=== PATIENT | female | born 1980 | race Hispanic/Latino ===

== ENCOUNTER 2016-12-16 21:16 | Outpatient (CLI) | payer MEDICAID ==
[2016-12-16 22:01] LABS: Bilirubin,Urine NEG (Negative); Blood,Urine NEG (Negative); Ketones,Urine NEG (Negative); Leukocyte Esterase,Urine MOD (Negative); Mucus,Urine FEW /HPF; Nitrite,Urine NEG (Negative); Protein,Urine <15 mg/dL mg/dL (Negative); RBC,Urine < 1.0 /HPF (0.0-6.0); Urobilinogen,Urine < 2.0 mg/dL (<2.0)
[2016-12-16 22:39] VITALS: BP 140/71
--- NOTE | 2016-12-17 08:07 | Ultrasound Report ---
OB LIMITED INDICATION: BOOKER. Possible rupture of membranes. COMPARISON: None similar. TECHNIQUE: Transabdominal grayscale ultrasound with Doppler interrogation. Gestation: [place] Position: Transverse - Head maternal right Amniotic Fluid: WNL (7-24 cm) BOOKER = 10.4 cm Placenta: Fundal Placental Grade: III Heart Rate: 127 BPM
== END 2016-12-16 22:40 | disposition home or self-care (01) ==
LOC: TRG 21:16
PROVIDERS: ATTEND Obstetrics & Gynecology
DX: O32.2XX0 Maternal care for transverse and oblique lie, not applicable or unspecified (principal); Z3A.31 31 weeks gestation of pregnancy
CPT/HCPCS: 76815; 81001

== ENCOUNTER 2017-01-09 10:32 | Inpatient (IN) | payer MEDICAID ==
[2017-01-09] MEDS ORDERED: MILK OF MAGNESIA PO PRN (10:49)
[2017-01-09] MEDS ORDERED: SENOKOT S PO PRN (10:49)
[2017-01-09] MEDS ORDERED: COLACE PO PRN (10:49)
[2017-01-09] MEDS ORDERED: APRESOLINE IV PRN (10:49)
[2017-01-09] MEDS ORDERED: ZOFRAN IV PRN (10:49)
[2017-01-09] MEDS ORDERED: TYLENOL PO PRN (10:49)
--- NOTE | 2017-01-09 10:59 | History and Physical Report ---
History of Present Illness Date of examination: 01/09/17 Chief complaint: Elevated BP's in the office 192/118 History of present illness: Pt is a 36yo WF S/P Repeat C Section 01/03/17 @ 34 weeks due to PPROM and Breech, presented to the office for incision check where her BP was elevated 150 /110 and 192/118 on repeat. She has chronic hypertension, but currently not on medication, and complains of a headache. Past History Past Medical History: hypertension Past Surgical History: section Social history: no significant social history, single - Obstetrical History : 4 Medications and Allergies Allergies Allergy/AdvReac Type Severity Reaction Status Date / Time aspirin Allergy Itching Verified 11/11/14 13:16 tramadol HCl [From Ultram] AdvReac Vomiting Verified 11/11/14 13:16 Home Medications Medication Instructions Recorded Confirmed Last Taken Type Ondansetron [Zofran Odt] 4 mg PO Q4H PRN #7 tab.rapdis 09/06/16 01/09/17 Unknown Rx Ferrous Sulfate [Feosol 325 MG tab] 325 mg PO BID #60 tablet 01/03/17 01/09/17 Unknown Rx HYDROcodone/APAP 5-325 [[place] 1 each PO Q6HR PRN #30 tablet 01/03/17 01/09/17 Unknown Rx 5/325] Ibuprofen [Motrin] 800 mg PO Q8HR PRN #30 tablet 01/03/17 01/09/17 Unknown Rx Vit W-Ca,Fe,FA(<1 mg) 1 each PO DAILY #30 tablet 01/03/17 01/09/17 Unknown Rx [ Vitamins] hydrALAZINE [Apresoline TAB] 25 mg PO Q8HR #90 tab 01/10/17 Unknown Rx Active Meds: Active Medications Acetaminophen (Tylenol) 650 mg PO Q4H PRN PRN Reason: Pain MILD(1-3)/Fever >100.5/NUNEZ Docusate Sodium (Colace) 100 mg PO Q12H PRN PRN Reason: Constipation Hydralazine HCl (Apresoline) 10 mg IV Q30MIN PRN PRN Reason: Blood Pressure Lactated Ringer's (Lactated Ringers) 1,000 mls @ 125 mls/hr IV DIRECT JORY Magnesium Hydroxide (Milk Of Magnesia) 30 ml PO QHS PRN PRN Reason: Laxative Effect Multivitamins/Iron/Calcium ( Vitamin) 1 each PO QDAY JORY Ondansetron HCl (Zofran) 4 mg IV Q6H PRN PRN Reason: Nausea And Vomiting Senna/Docusate Sodium (Senokot S) 2 tab PO Q12H PRN PRN Reason: Laxative Effect Review of Systems All systems: negative Results Result Diagrams: 01/09/17 14:20 01/09/17 14:20 All other labs normal. Assessment and Plan - Patient Problems (1) Accelerated hypertension Onset Date: 01/09/17 Current Visit: Yes Status: Acute Plan to address problem: A: Uncontrolled hypertension P: Admit for Observation and BP management Obtain Hospitalist consultation (2) Preeclampsia in period Onset Date: 01/09/17 Current Visit: Yes Status: Acute
[2017-01-09] MEDS ORDERED: LACTATED RINGERS 1,000 ML IV SCH (13:18)
--- NOTE | 2017-01-09 13:43 | Admit Criteria Form ---
Admission Criteria Documentation: HYPERTENSIVE DISORDERS OF Clinical Indications for Admission to Inpatient Care (Place 'X' for any and all applicable criteria): Admission is indicated for ANY ONE of the following (1)(2)(3)(4)(5): [ ]I. Eclampsia[A][B] [X ]II. Preeclampsia with severe features (ie, severe preeclampsia) indicated by ANY ONE of the following[B][C]: [X ]a) SBP greater than or equal to 160 mm Hg or DBP greater than or equal to 110 mm Hg on 2 occasions at least 4 hours apart while the patient is at bed rest (unless antihypertensive therapy is initiated before this time) [ ]b) Platelet count less than 100,000/mm3 (100 x109/L) [ ]c) Impaired liver function as indicated by ANY ONE of the following: [ ]i. Elevation of liver enzymes (eg, SGOT, SGPT) to twice normal concentration [ ]ii. Severe persistent right upper quadrant or epigastric pain unresponsive to medication and not accounted for by alternative diagnosis [ ]d) Progressive renal insufficiency indicated by ANY ONE of the following: [ ]i. Serum creatinine concentration greater than 1.1 mg/dL (97 micromoles/L) [ ]ii. Doubling (from baseline) of serum creatinine concentration in the absence of other renal disease [ ]e) Pulmonary edema [ X]f) Cerebral or visual symptoms (eg, headache, Altered mental status, changes in vision) [ ]III. Delivery planned due to nonsevere preeclampsia as indicated by ALL of the following: [ ]a) Nonsevere preeclampsia present as indicated by ALL of the following: [ ]i. Woman at 20 or more weeks' gestation [ ]ii. New-onset SBP greater than or equal to 140 mm Hg but less than 160 mm Hg or DBP greater than or equal to 90 mm Hg but less than 110 mm Hg on 2 occasions at least 4 hours apart [ ]iii. Proteinuria present as indicated by ANY ONE of the following: [ ]A. Urinary protein excretion greater than or equal to 300 mg per 24-hour collection (or this amount extrapolated from a shorter timed collection) [ ]B. Protein/creatinine ratio greater than or equal to 0.3 (measured in mg/dL) [ ]b) Delivery indicated due to ANY ONE of the following: [ ]i. Gestational age of 37 0/7 weeks or more [ ]ii. Gestational age of 34 0/7 weeks to 36 6/7 weeks and ANY ONE of the following: [ ]A. Progressive labor or rupture of membranes [ ]B. Abnormal biophysical profile [ ]C. Suspected abruptio placentae [ ]D. Ultrasound estimate of weight less than 5th percentile [ ]E. Other indication for delivery [ ]IV. Delivery planned due to gestational hypertension[D] because of ANY ONE of the following: [ ]a) Delivery indicated because gestational age of 37 0/7 weeks or more has been reached [ ]b) Gestational age of 34 0/7 weeks to 36 6/7 weeks for which delivery is indicated because of ANY ONE of the following: [ ]i. Progressive labor or rupture of membranes [ ]ii. Abnormal biophysical profile [ ]iii. Suspected abruptio placentae [ ]iv. Ultrasound estimate of weight less than 5th percentile [ ]v. Other indication for delivery [ ]V. Hypertension of any category[E] during with acute end organ damage as indicated by ANY ONE of the following: [ ]a) Hypertensive encephalopathy (eg, Altered mental status that is severe or persistent )(11) [ ]b) Cerebral infarction [ ]c) Intracranial hemorrhage [ ]d) Myocardial ischemia or infarction [ ]e) Pulmonary edema [ ]f) Aortic dissection [ ]g) Seizure [ ]h) Papilledema [ ]i) Microangiopathic hemolytic anemia [ ]j) Visual loss [ ]k) Acute renal failure [ ]) Hypertension during with evidence of compromise as indicated by ANY ONE of the following: [ ]a) Abnormal heart tones [ ]b) Abnormal stress test [ ]c) Abnormal biophysical profile [ ]VII) patient requires inpatient control of blood pressure indicated by (see Hypertensive Disorders of : Observation Care [facility] guideline as appropriate) ALL of the following: [ ]a) SBP is greater than or equal to 160 mm Hg or DBP is greater than or equal to 105 mm Hg [ ]b) Blood pressure cannot be reduced below these levels with outpatient or observation care treatment (eg, oral medications not effective) Extended stay beyond goal length of stay may be needed for : [ ]a) Eclampsia [ ]b) Ongoing compromise [ ]c) Complications of hypertensive disorders of [ ]d) Active comorbidities (eg, heart failure, poorly controlled diabetes, renal insufficiency) [ ]e) Persistent hypertension [ ]f) Delivery planned The original [facility] content created by [facility] has been revised. The portions of the content which have been revised are identified through the use of italic text or in bold, and [facility] has neither reviewed nor approved the modified material. All other unmodified content is copyright [facility]. Please see references footnoted in the original [facility] edition 2016. Admission Criteria Met: Yes
--- NOTE | 2017-01-09 13:52 | Consultation ---
History of Present Illness - Reason for Consult Consult date: 01/09/17 Requesting physician: HEAVENLY CHARLES - History of Present Illness 36 YO Female with HTN, Obesity admitted to OB service. Consult placed for Accelerated hypertension. Pt found to have systolic of 150-192. Pt denies fever , chills, CP, Palpitations, NVD, Headache, Syncope, BRBPR. Pt noncompliant with prehospital antihypertensive therapy. Past History Past Medical History: hypertension Past Surgical History: Social history: no significant social history, single Family history: hypertension Medications and Allergies Allergies Allergy/AdvReac Type Severity Reaction Status Date / Time aspirin Allergy Itching Verified 11/11/14 13:16 tramadol HCl [From Ultram] AdvReac Vomiting Verified 11/11/14 13:16 Home Medications Medication Instructions Recorded Confirmed Last Taken Type Ondansetron [Zofran Odt] 4 mg PO Q4H PRN #7 tab.rapdis 09/06/16 01/09/17 Unknown Rx Ferrous Sulfate [Feosol 325 MG tab] 325 mg PO BID #60 tablet 01/03/17 01/09/17 Unknown Rx HYDROcodone/APAP 5-325 [[place] 1 each PO Q6HR PRN #30 tablet 01/03/17 01/09/17 Unknown Rx 5/325] Ibuprofen [Motrin] 800 mg PO Q8HR PRN #30 tablet 01/03/17 01/09/17 Unknown Rx Vit W-Ca,Fe,FA(<1 mg) 1 each PO DAILY #30 tablet 01/03/17 01/09/17 Unknown Rx [ Vitamins] Active Meds: Active Medications Acetaminophen (Tylenol) 650 mg PO Q4H PRN PRN Reason: Pain MILD(1-3)/Fever >100.5/NUNEZ Hydralazine HCl (Apresoline) 10 mg IV Q30MIN PRN PRN Reason: Blood Pressure Lactated Ringer's (Lactated Ringers) 1,000 mls @ 125 mls/hr IV DIRECT JORY Magnesium Hydroxide (Milk Of Magnesia) 30 ml PO QHS PRN PRN Reason: Laxative Effect Multivitamins/Iron/Calcium ( Vitamin) 1 each PO QDAY JORY Ondansetron HCl (Zofran) 4 mg IV Q6H PRN PRN Reason: Nausea And Vomiting Senna/Docusate Sodium (Senokot S) 2 tab PO Q12H PRN PRN Reason: Laxative Effect Review of Systems Constitutional: other (hypertension) Exam - Constitutional Vitals: Temp Pulse Resp BP Pulse Ox 98.2 F 81 18 141/80 01/09/17 11:35 01/09/17 11:35 01/09/17 11:35 01/09/17 11:35 General appearance: Present: obese - EENT Eyes: Present: PERRL ENT: hearing intact, clear oral mucosa - Neck Neck: Present: supple, normal ROM - Respiratory Respiratory effort: normal Respiratory: bilateral: CTA - Cardiovascular Heart Sounds: Present: S1 & S2. Absent: rub, click - Extremities Extremities: pulses symmetrical, No edema Peripheral Pulses: within normal limits - Abdominal General gastrointestinal: Present: soft, non-tender, non-distended, normal bowel sounds Female genitourinary: Present: normal - Integumentary Integumentary: Present: clear, warm, dry - Musculoskeletal Musculoskeletal: gait normal, strength equal bilaterally - Psychiatric Psychiatric: appropriate mood/affect, intact judgment & insight - Neurologic Neurologic: CNII-XII intact, moves all extremities Results - Labs CBC & Chem 7: 01/09/17 14:20 01/09/17 14:20 Assessment and Plan - Patient Problems (1) Accelerated hypertension Current Visit: Yes Status: Acute Plan to address problem: Monitor bp q shift, scheduled hydralazine tid, (2) Obesity Current Visit: Yes Status: Acute Qualifiers: Obesity type: O Obesity severity: O Plan to address problem: Pt counseled regarding increased physical activity, balanced diet. (3) DVT prophylaxis Current Visit: Yes Status: Acute
[2017-01-09] MEDS: APRESOLINE PO SCH ×2 (14:32→22:59)
[2017-01-09 14:46] LABS: Bacteria,Urine 1+ /HPF (Negative); Bilirubin,Urine NEG (Negative); Blood,Urine SM (Negative); Ketones,Urine NEG (Negative); Leukocyte Esterase,Urine TR (Negative); Mucus,Urine FEW /HPF; Nitrite,Urine NEG (Negative); Protein,Urine <15 mg/dL mg/dL (Negative); Urobilinogen,Urine < 2.0 mg/dL (<2.0)
[2017-01-09 14:51] LABS: Hematocrit 34.6 % (30.3-42.9); Hemoglobin 11.5 gm/dl (10.1-14.3); Mean Corpuscular HGB Conc 33 % (30-34); Mean Corpuscular Hemoglobin 29 pg (28-32); Mean Corpuscular Volume 86 fl (79-97); Platelet Count 351 K/mm3 (140-440); Red Blood Count 4.03 M/mm3 (3.65-5.03); Red Cell Distribution Width 14.3 % (13.2-15.2); White Blood Count 19.2 K/mm3 (4.5-11.0)
[2017-01-09 15:10] LABS: Alanine Aminotransferase 17 units/L (7-56); Albumin 3.2 g/dL (3.9-5); Albumin/Globulin Ratio 0.9 %; Alkaline Phosphatase 172 units/L (35-129); Anion Gap 18 mmol/L; BUN/Creatinine Ratio 18.33; Bilirubin,Total 0.2 mg/dL (0.1-1.2); Blood Urea Nitrogen 11 mg/dL (7-17); Calcium 8.3 mg/dL (8.4-10.2); Carbon Dioxide 24 mmol/L (22-30); Chloride 99.8 mmol/L (98-107); Glucose 100 mg/dL (65-100); Potassium 3.8 mmol/L (3.6-5.0); Sodium 138 mmol/L (137-145); Total Protein 6.8 g/dL (6.3-8.2)
[2017-01-09 16:19] LABS: Basophils % (Manual) 0 % (0.0-1.8); Blastocytes % (Manual) 0 %; Eosinophils % (Manual) 0 % (0.0-4.3)
[2017-01-09 16:20] LABS: Diff Status Complete; RBC Morphology Normal
[2017-01-09] MEDS ORDERED: ceFAZolin 2 GM in NACL 0.9% 100 ML IV ONE (16:30)
[2017-01-10] MEDS: KEFLEX PO SCH ×2 (00:05→11:12)
[2017-01-10] MEDS ORDERED: ANCEF/NS 1 GM/50 ML 1 GM/50 ML BAG IV SCH (00:30)
[2017-01-10] MEDS: APRESOLINE PO SCH ×2 (06:02→14:29)
[2017-01-10] MEDS ORDERED: PRENATAL VITAMIN PO SCH (10:00)
--- NOTE | 2017-01-10 10:10 | Progress Note ---
Hospitalist Physical - Constitutional Vitals: Temp Pulse Resp BP Pulse Ox 98.2 F 85 18 128/85 01/10/17 08:30 01/10/17 08:30 01/10/17 08:30 01/10/17 08:30 General appearance: Present: obese Results - Labs CBC & Chem 7: 01/09/17 14:20 01/09/17 14:20 Labs: Laboratory Last Values WBC 19.2 K/mm3 (4.5-11.0) H 01/09/17 14:20 RBC 4.03 M/mm3 (3.65-5.03) 01/09/17 14:20 Hgb 11.5 gm/dl (10.1-14.3) 01/09/17 14:20 Hct 34.6 % (30.3-42.9) 01/09/17 14:20 MCV 86 fl (79-97) 01/09/17 14:20 MCH 29 pg (28-32) 01/09/17 14:20 MCHC 33 % (30-34) 01/09/17 14:20 RDW 14.3 % (13.2-15.2) 01/09/17 14:20 Plt Count 351 K/mm3 (140-440) 01/09/17 14:20 Add Manual Diff Complete 01/09/17 14:20 Total Counted 100 01/09/17 14:20 Seg Neuts % (Manual) 76.0 % (40.0-70.0) H 01/09/17 14:20 Band Neutrophils % 0 % 01/09/17 14:20 Lymphocytes % (Manual) 16.0 % (13.4-35.0) 01/09/17 14:20 Reactive Lymphs % (Man) 0 % 01/09/17 14:20 Monocytes % (Manual) 5.0 % (0.0-7.3) 01/09/17 14:20 Eosinophils % (Manual) 0 % (0.0-4.3) 01/09/17 14:20 Basophils % (Manual) 0 % (0.0-1.8) 01/09/17 14:20 Metamyelocytes % 0 % 01/09/17 14:20 Myelocytes % 3.0 % 01/09/17 14:20 Promyelocytes % 0 % 01/09/17 14:20 Blast Cells % 0 % 01/09/17 14:20 Nucleated RBC % Not Reportable 01/09/17 14:20 Seg Neutrophils # Man 14.6 K/mm3 (1.8-7.7) H 01/09/17 14:20 Band Neutrophils # 0.0 K/mm3 01/09/17 14:20 Lymphocytes # (Manual) 3.1 K/mm3 (1.2-5.4) 01/09/17 14:20 Abs React Lymphs (Man) 0.0 K/mm3 01/09/17 14:20 Monocytes # (Manual) 1.0 K/mm3 (0.0-0.8) H 01/09/17 14:20 Eosinophils # (Manual) 0.0 K/mm3 (0.0-0.4) 01/09/17 14:20 Basophils # (Manual) 0.0 K/mm3 (0.0-0.1) 01/09/17 14:20 Metamyelocytes # 0.0 K/mm3 01/09/17 14:20 Myelocytes # 0.6 K/mm3 01/09/17 14:20 Promyelocytes # 0.0 K/mm3 01/09/17 14:20 Blast Cells # 0.0 K/mm3 01/09/17 14:20 WBC Morphology Not Reportable 01/09/17 14:20 Hypersegmented Neuts Not Reportable 01/09/17 14:20 Hyposegmented Neuts Not Reportable 01/09/17 14:20 Hypogranular Neuts Not Reportable 01/09/17 14:20 Smudge Cells Not Reportable 01/09/17 14:20 Toxic Granulation Not Reportable 01/09/17 14:20 Toxic Vacuolation Not Reportable 01/09/17 14:20 Dohle Bodies Not Reportable 01/09/17 14:20 Pelger-Huet Anomaly Not Reportable 01/09/17 14:20 Delio Rods Not Reportable 01/09/17 14:20 Platelet Estimate Appears normal 01/09/17 14:20 Clumped Platelets Not Reportable 01/09/17 14:20 Plt Clumps, EDTA Not Reportable 01/09/17 14:20 Large Platelets Not Reportable 01/09/17 14:20 Giant Platelets Not Reportable 01/09/17 14:20 Platelet Satelliting Not Reportable 01/09/17 14:20 Plt Morphology Comment Not Reportable 01/09/17 14:20 RBC Morphology Normal 01/09/17 14:20 Dimorphic RBCs Not Reportable 01/09/17 14:20 Polychromasia Not Reportable 01/09/17 14:20 Hypochromasia Not Reportable 01/09/17 14:20 Poikilocytosis Not Reportable 01/09/17 14:20 Anisocytosis Not Reportable 01/09/17 14:20 Microcytosis Not Reportable 01/09/17 14:20 Macrocytosis Not Reportable 01/09/17 14:20 Spherocytes Not Reportable 01/09/17 14:20 Pappenheimer Bodies Not Reportable 01/09/17 14:20 Sickle Cells Not Reportable 01/09/17 14:20 Target Cells Not Reportable 01/09/17 14:20 Tear Drop Cells Not Reportable 01/09/17 14:20 Ovalocytes Not Reportable 01/09/17 14:20 Helmet Cells Not Reportable 01/09/17 14:20 [place] Bodies Not Reportable 01/09/17 14:20 [place] Rings Not Reportable 01/09/17 14:20 [place] Cells Not Reportable 01/09/17 14:20 Bite Cells Not Reportable 01/09/17 14:20 Crenated Cell Not Reportable 01/09/17 14:20 Elliptocytes Not Reportable 01/09/17 14:20 Acanthocytes (Spur) Not Reportable 01/09/17 14:20 Rouleaux Not Reportable 01/09/17 14:20 Hemoglobin C Crystals Not Reportable 01/09/17 14:20 Schistocytes Not Reportable 01/09/17 14:20 Malaria parasites Not Reportable 01/09/17 14:20 Javier Bodies Not Reportable 01/09/17 14:20 Hem Pathologist Commnt No 01/09/17 14:20 Sodium 138 mmol/L (137-145) 01/09/17 14:20 Potassium 3.8 mmol/L (3.6-5.0) 01/09/17 14:20 Chloride 99.8 mmol/L (98-107) 01/09/17 14:20 Carbon Dioxide 24 mmol/L (22-30) 01/09/17 14:20 Anion Gap 18 mmol/L 01/09/17 14:20 BUN 11 mg/dL (7-17) 01/09/17 14:20 Creatinine 0.6 mg/dL (0.7-1.2) L 01/09/17 14:20 Estimated GFR > 60 ml/min 01/09/17 14:20 BUN/Creatinine Ratio 18.33 % 01/09/17 14:20 Glucose 100 mg/dL (65-100) 01/09/17 14:20 Calcium 8.3 mg/dL (8.4-10.2) L 01/09/17 14:20 Total Bilirubin 0.2 mg/dL (0.1-1.2) 01/09/17 14:20 AST 14 units/L (5-40) 01/09/17 14:20 ALT 17 units/L (7-56) 01/09/17 14:20 Alkaline Phosphatase 172 units/L (35-129) H 01/09/17 14:20 Lactate Dehydrogenase 250 units/L (91-180) H 01/09/17 14:20 Total Protein 6.8 g/dL (6.3-8.2) 01/09/17 14:20 Albumin 3.2 g/dL (3.9-5) L 01/09/17 14:20 Albumin/Globulin Ratio 0.9 % 01/09/17 14:20 Urine Color Yellow (Yellow) 01/09/17 14:23 Urine Turbidity Clear (Clear) 01/09/17 14:23 Urine pH 7.0 (5.0-7.0) 01/09/17 14:23 Ur Specific [place] 1.015 (1.003-1.030) 01/09/17 14:23 Urine Protein <15 mg/dl mg/dL (Negative) 01/09/17 14:23 Urine Glucose (UA) Neg mg/dL (Negative) 01/09/17 14:23 Urine Ketones Neg mg/dL (Negative) 01/09/17 14:23 Urine Blood Sm (Negative) 01/09/17 14:23 Urine Nitrite Neg (Negative) 01/09/17 14:23 Urine Bilirubin Neg (Negative) 01/09/17 14:23 Urine Urobilinogen < 2.0 mg/dL (<2.0) 01/09/17 14:23 Ur Leukocyte Esterase Tr (Negative) 01/09/17 14:23 Urine WBC (Auto) 3.0 /HPF (0.0-6.0) 01/09/17 14:23 Urine RBC (Auto) 4.0 /HPF (0.0-6.0) 01/09/17 14:23 U Epithel Cells (Auto) 1.0 /HPF (0-13.0) 01/09/17 14:23 Urine Bacteria (Auto) 1+ /HPF (Negative) 01/09/17 14:23 Urine Mucus Few /HPF 01/09/17 14:23
--- NOTE | 2017-01-10 11:00 | Progress Note ---
Assessment and Plan - Patient Problems (1) Accelerated hypertension Onset Date: 01/09/17 Current Visit: Yes Status: Resolved Plan to address problem: A: Uncontrolled hypertension - now controlled on Apresoline 25mg Q8H P: Appreciate Hospitalist consultation Will discharge to home today with follow up in office in 3 days. (2) Preeclampsia in period Onset Date: 01/09/17 Current Visit: Yes Status: Resolved Subjective - Subjective Date of service: 01/10/17 Principal diagnosis: Uncontrolled hypertension; Suspected preeclampsia Interval history: Pt is feeling much better, headaches resolved and BP's improved on Apresoline 25mg Q8H. BP's 124-136/79-85; now 128/85 Patient reports: appetite normal, voiding normally, pain well controlled, ambulating normally Objective - Vital Signs Latest vital signs: Vital Signs Temp Pulse Pulse Resp BP BP 01/10/17 08:30 98.2 F 85 18 128/85 01/10/17 06:30 16 01/10/17 06:02 76 130/82 01/10/17 04:15 98.1 F 83 20 124/82 01/10/17 00:58 98.6 F 91 H 18 136/79 01/09/17 22:59 82 130/77 01/09/17 20:00 99 F 84 22 140/77 01/09/17 16:45 98.5 F 95 H 18 153/1 01/09/17 14:32 73 141/80 01/09/17 11:35 98.2 F 81 18 141/80 Intake and Output 01/09/17 01/10/17 01/10/17 22:59 06:59 14:59 Intake Total 840 240 Balance 840 240 Intake: Oral 600 Intake, Free Water 240 240 Other: Total, Intake Amount 600 # Voids Void 1 1 - Exam Cardiovascular: Present: Regular rate Lungs: Present: Clear to auscultation Abdomen: Present: normal appearance, soft Uterus: Present: normal Incision: Present: normal, dry, intact - Labs Labs: Abnormal lab results 01/09/17 01/09/17 01/09/17 Range/Units 14:20 14:20 14:20 WBC 19.2 H (4.5-11.0) K/mm3 Seg Neuts % (Manual) 76.0 H (40.0-70.0) % Seg Neutrophils # Man 14.6 H (1.8-7.7) K/mm3 Monocytes # (Manual) 1.0 H (0.0-0.8) K/mm3 Creatinine 0.6 L (0.7-1.2) mg/dL Calcium 8.3 L (8.4-10.2) mg/dL Alkaline Phosphatase 172 H (35-129) units/L Lactate Dehydrogenase 250 H (91-180) units/L Albumin 3.2 L (3.9-5) g/dL Laboratory Results - last 24 hr 01/09/17 01/09/17 01/09/17 14:20 14:20 14:20 WBC 19.2 H RBC 4.03 Hgb 11.5 Hct 34.6 MCV 86 MCH 29 MCHC 33 RDW 14.3 Plt Count 351 Add Manual Diff Complete Total Counted 100 Seg Neuts % (Manual) 76.0 H Band Neutrophils % 0 Lymphocytes % (Manual) 16.0 Reactive Lymphs % (Man) 0 Monocytes % (Manual) 5.0 Eosinophils % (Manual) 0 Basophils % (Manual) 0 Metamyelocytes % 0 Myelocytes % 3.0 Promyelocytes % 0 Blast Cells % 0 Nucleated RBC % Not Reportable Seg Neutrophils # Man 14.6 H Band Neutrophils # 0.0 Lymphocytes # (Manual) 3.1 Abs React Lymphs (Man) 0.0 Monocytes # (Manual) 1.0 H Eosinophils # (Manual) 0.0 Basophils # (Manual) 0.0 Metamyelocytes # 0.0 Myelocytes # 0.6 Promyelocytes # 0.0 Blast Cells # 0.0 WBC Morphology Not Reportable Hypersegmented Neuts Not Reportable Hyposegmented Neuts Not Reportable Hypogranular Neuts Not Reportable Smudge Cells Not Reportable Toxic Granulation Not Reportable Toxic Vacuolation Not Reportable Dohle Bodies Not Reportable Pelger-Huet Anomaly Not Reportable Delio Rods Not Reportable Platelet Estimate Appears normal Clumped Platelets Not Reportable Plt Clumps, EDTA Not Reportable Large Platelets Not Reportable Giant Platelets Not Reportable Platelet Satelliting Not Reportable Plt Morphology Comment Not Reportable RBC Morphology Normal Dimorphic RBCs Not Reportable Polychromasia Not Reportable Hypochromasia Not Reportable Poikilocytosis Not Reportable Anisocytosis Not Reportable Microcytosis Not Reportable Macrocytosis Not Reportable Spherocytes Not Reportable Pappenheimer Bodies Not Reportable Sickle Cells Not Reportable Target Cells Not Reportable Tear Drop Cells Not Reportable Ovalocytes Not Reportable Helmet Cells Not Reportable [place] Bodies Not Reportable [place] Rings Not Reportable [place] Cells Not Reportable Bite Cells Not Reportable Crenated Cell Not Reportable Elliptocytes Not Reportable Acanthocytes (Spur) Not Reportable Rouleaux Not Reportable Hemoglobin C Crystals Not Reportable Schistocytes Not Reportable Malaria parasites Not Reportable Javier Bodies Not Reportable Hem Pathologist Commnt No Sodium 138 Potassium 3.8 Chloride 99.8 Carbon Dioxide 24 Anion Gap 18 BUN 11 Creatinine 0.6 L Estimated GFR > 60 BUN/Creatinine Ratio 18.33 Glucose 100 Calcium 8.3 L Total Bilirubin 0.2 AST 14 ALT 17 Alkaline Phosphatase 172 H Lactate Dehydrogenase 250 H Total Protein 6.8 Albumin 3.2 L Albumin/Globulin Ratio 0.9 Urine Color Urine Turbidity Urine pH Ur Specific [place] Urine Protein Urine Glucose (UA) Urine Ketones Urine Blood Urine Nitrite Urine Bilirubin Urine Urobilinogen Ur Leukocyte Esterase Urine WBC (Auto) Urine RBC (Auto) U Epithel Cells (Auto) Urine Bacteria (Auto) Urine Mucus 01/09/17 14:23 WBC RBC Hgb Hct MCV MCH MCHC RDW Plt Count Add Manual Diff Total Counted Seg Neuts % (Manual) Band Neutrophils % Lymphocytes % (Manual) Reactive Lymphs % (Man) Monocytes % (Manual) Eosinophils % (Manual) Basophils % (Manual) Metamyelocytes % Myelocytes % Promyelocytes % Blast Cells % Nucleated RBC % Seg Neutrophils # Man Band Neutrophils # Lymphocytes # (Manual) Abs React Lymphs (Man) Monocytes # (Manual) Eosinophils # (Manual) Basophils # (Manual) Metamyelocytes # Myelocytes # Promyelocytes # Blast Cells # WBC Morphology Hypersegmented Neuts Hyposegmented Neuts Hypogranular Neuts Smudge Cells Toxic Granulation Toxic Vacuolation Dohle Bodies Pelger-Huet Anomaly Delio Rods Platelet Estimate Clumped Platelets Plt Clumps, EDTA Large Platelets Giant Platelets Platelet Satelliting Plt Morphology Comment RBC Morphology Dimorphic RBCs Polychromasia Hypochromasia Poikilocytosis Anisocytosis Microcytosis Macrocytosis Spherocytes Pappenheimer Bodies Sickle Cells Target Cells Tear Drop Cells Ovalocytes Helmet Cells Bates-[place] Bodies [place] Rings [place] Cells Bite Cells Crenated Cell Elliptocytes Acanthocytes (Spur) Rouleaux Hemoglobin C Crystals Schistocytes Malaria parasites Javier Bodies Hem Pathologist Commnt Sodium Potassium Chloride Carbon Dioxide Anion Gap BUN Creatinine Estimated GFR BUN/Creatinine Ratio Glucose Calcium Total Bilirubin AST ALT Alkaline Phosphatase Lactate Dehydrogenase Total Protein Albumin Albumin/Globulin Ratio Urine Color Yellow Urine Turbidity Clear Urine pH 7.0 Ur Specific [place] 1.015 Urine Protein <15 mg/dl Urine Glucose (UA) Neg Urine Ketones Neg Urine Blood Sm Urine Nitrite Neg Urine Bilirubin Neg Urine Urobilinogen < 2.0 Ur Leukocyte Esterase Tr Urine WBC (Auto) 3.0 Urine RBC (Auto) 4.0 U Epithel Cells (Auto) 1.0 Urine Bacteria (Auto) 1+ Urine Mucus Few
--- NOTE | 2017-01-10 11:10 | Discharge Summary ---
Providers - Providers Date of Admission: 01/09/17 11:13 Attending physician: HEAVENLY TAPIA MD 01/09/17 11:55 Consult to Physician [CONS] Urgent Consulting Provider: GIRMA REYNOLDS Reason For Exam: Uncontrolled hypertension Place consult to:: Hospitalist Notified:: Hospitalist Phone number called:: [phone] Was contact made?: Yes If yes, spoke with:: Time called:: 11:57 Primary care physician: [employer] Hospitalization Reason for admission: other ( preeclampsia; Uncontrolled hypertension) Other procedures: none complications: none Discharge diagnosis: other ( preeclampsia - resolved; Accelerated hypertension - resolved) Hospital course: Pt is a 36yo WF S/P Repeat C Section 01/03/17 @ 34 weeks due to PPROM and Breech, presented to the office for incision check where her BP was elevated 150 /110 and 192/118 on repeat. She had chronic hypertension, but was not taking medication. She was hospitalized and consultation with the Hospitalist helped to manage her BP's with IV and now PO Apresoline 25mg TID. Her BP's ranged from 124-136/79-85 and is currently 128/85. She is doing well and therefore will be discharged to home in stable condition. Condition at discharge: Good Disposition: DISCHARGED TO HOME OR SELFCARE - Discharge Diagnoses (1) Accelerated hypertension Status: Resolved (2) Preeclampsia in period Status: Resolved Plan - Discharge Medications Prescriptions: hydrALAZINE [Apresoline TAB] 25 mg PO Q8HR #90 tab hydrALAZINE [Apresoline TAB] 25 mg PO Q8HR #90 tablet - Provider Discharge Summary Activity: routine, no sex for 6 weeks, no heavy lifting 4 weeks, no strenuous exercise Diet: routine Instructions: routine Additional instructions: [] Smoking cessation referral if applicable(refer to patient education folder for contact #) [] Refer to [facility] Booklet Call your doctor immediately for: * Fever > 100.5 * Heavy vaginal bleeding ( >1 pad per hour) * Severe persistent headache * Shortness of breath * Reddened, hot, painful area to leg or breast * Drainage or odor from incision. * Keep incision clean and dry at all times and follow doctor's instructions regarding bathing/showering - Follow up plan Follow up: PRIMARY CARE, [Primary Care Provider] - 7 Days WLHEAVENLY BOWDEN MD [Staff Physician] - 3 Days
--- NOTE | 2017-01-10 11:40 | Event Note ---
Date: 01/10/17 The hospitalist service was consulted for elevated blood pressure which is now stable. I went to see patient twice but she was never in the room - she was out smoking. The patient was not seen because she was not in room. Her blood pressure is however normal and she is stable for discharge
[2017-01-10 15:56] VITALS: BP 132/78
== END 2017-01-10 15:59 | disposition home or self-care (01) | DRG 776 ==
LOC: 3A 10:32 → UNDOADMIN 10:32 → OB 11:13
PROVIDERS: ADMIT Obstetrics & Gynecology; ATTEND Obstetrics & Gynecology
DX: O10.03 Pre-existing essential hypertension complicating the puerperium (principal); O14.95 Unspecified pre-eclampsia, complicating the puerperium; O99.215 Obesity complicating the puerperium; E66.9 Obesity, unspecified; Z68.35 Body mass index [BMI] 35.0-35.9, adult
CPT/HCPCS: 36415; 80053; 81001; 83615; 85007; 85025; J0690; J7120